=== PATIENT | female | born 1975 | race Caucasian/White ===

== ENCOUNTER 2018-11-26 21:05 | Inpatient (IN) | payer OTHER, SELFPAY ==
[~2018-11-26 21:05] MED LIST: ISOVUE-370 76%-LOCM 1 ML ONE
[2018-11-26] MEDS ORDERED: Ondansetron PF 4 MG/2 ML Vial ONE (22:28)
[2018-11-26] MEDS ORDERED: Famotidine/PF 20 mg/2ml Vial ONE (22:28)
[2018-11-26] MEDS ORDERED: Ketorolac Tromethamine 30 MG/ML VIAL ONE (22:28)
[2018-11-26] MEDS ORDERED: Glycopyrrolate 0.4 MG/ 2 ML VIAL SLOW IVP SCH (22:30)
[2018-11-26 22:33] LABS: Band 16 % (5-11); Eosinophils 1 % (0-10); Hemoglobin 19.5 g/dL (12.0-16.0); Lymphocytes 9 % (21-51); MDiff Complete? YES; Mean Corpuscular HGB CONC 33.2 g/dL (32.0-36.0); Mean Corpuscular Hemoglobin 32.1 pg (27.0-31.0); Mean Corpuscular Volume 96.6 fL (78.0-98.0); Monocytes 5 % (0-10); Neutrophil 69 % (42-75); Platelet Count 480 thou/uL (130-400); RBC Distribution Width 11.9 % (11.5-14.5); Red Blood Cell (RBC) Count 6.08 mill/uL (4.20-5.40); White Blood Cell (WBC) Count 33.9 thou/uL (4.8-10.8)
[2018-11-26 22:38] LABS: ALT (SGPT) 35 U/L (8-55); AST (SGOT) 36 U/L (5-34); Acetaminophen Less than 6.0 mcg/mL (10.0-30.0); Albumin 4.3 g/dL (3.5-5.0); Alcohol Less than 10 mg/dL (Less than 10); Alkaline Phosphatase 46 U/L (40-150); Anion Gap 18 mmol/L (10-20); BUN (Urea Nitrogen) 10 mg/dL (7.0-18.7); Bilirubin, Total 0.6 mg/dL (0.2-1.2); Calc. Creatinine Clearance 0 mL/min (70-130); Calcium 9.8 mg/dL (7.8-10.44); Carbon Dioxide 20 mmol/L (22-29); Chloride 101 mmol/L (98-107); Estimated GFR-MDRD 41; Globulin 3.4 g/dL (2.4-3.5); Glucose 136 mg/dL (70-105); Potassium 3.7 mmol/L (3.5-5.1); Protein, Total 7.7 g/dL (6.0-8.3); Salicylate Less than 8.0 mg/dL (15.0-30.0); Sodium 135 mmol/L (136-145)
[2018-11-26] MEDS ORDERED: Glycopyrrolate 0.2 MG/ML 5 ML SYRINGE SLOW IVP SCH (22:45)
--- NOTE | 2018-11-26 23:27 | CT ---
ABDOMEN CT WITH CONTRAST PELVIC CT WITH CONTRAST 11/26/18 HISTORY: Two weeks of abdominal pain. COMPARISON: None. FINDINGS: ABDOMEN CT: Lung bases are clear. Heart size is normal. No pericardial effusion. The descending thoracic aorta an d abdominal aorta have a normal caliber. No periaortic fat stranding. Portal vein is patent. Liver, spleen, pancreas and adrenal glands have appropriate enhancement. There is symmetric enhancement of the kidneys. Bilaterally, no obstructive uropathy. there is a nonsp ecific calcification involving the inferior left renal cortex. A component of scarring in the inferio r pole of the left kidney is suspected, likely due to remote insult. Bilaterally, no obstructive urop athy. Gallbladder is contacted. Multiple gallstones are noted. There is a small amount of fluid in the gall bladder fossa. There is also evidence of perihepatic and perisplenic fluid. Attenuation coefficient suggests slightly complex fluid. No gastrohepatic, retrocrural or periportal lymphadenopathy. No mesenteric mass, lymphadenopathy or f ree air. Perihepatic and perisplenic fluid are noted. Limited evaluation of the alimentary canal by lack of oral contrast. There are multiple fluid filled loops of small bowel with mild distention as well as mucosal prominence. The possibility of enteritis is raised. No evidence of bowel obstruction. Ileocecal junction is normal. There is fluid attenuatio n in the colon, without evidence of well formed fecal material. Colitis cannot be excluded. Normal ca liber appendix is identified. CT PELVIS: Uterus and adnexal structures are unremarkable. Urinary bladder is unremarkable. There is free fluid in the pelvis. No mass, lymphadenopathy or free air. No lytic or blastic lesions in the osseous structures. IMPRESSION: 1. Complex fluid in the abdomen and pelvis which is presumed to be reactive. There is evidence o f fluid attenuation in the colon along with small bowel mucosal prominence and small bowel distention . Correlate for enterocolitis. 2. Contracted gallbladder with gallstones. There is a small amount of fluid in the gallbladder f drake. The possibility of cholecystitis cannot be excluded. HIDA scan may be beneficial. 3. Presumed chronic change in the lower pole of the left kidney. POS: [facility]
[2018-11-26] MEDS ORDERED: Piperacillin/Tazobactam 4.5 GM VIAL ONE (23:56)
[2018-11-27] MEDS ORDERED: Ondansetron ODT 4 MG TAB PO PRN (00:35)
[2018-11-27] MEDS ORDERED: Ondansetron PF 4 MG/2 ML Vial IVP PRN (00:35)
[2018-11-27] MEDS ORDERED: Acetaminophen 325 MG TAB PO PRN (00:35)
[2018-11-27] MEDS ORDERED: Ondansetron PF 4 MG/2 ML Vial ONE (01:39)
[2018-11-27] MEDS ORDERED: Morphine 2 MG/ML SYRINGE ONE (01:39)
[2018-11-27] MEDS ORDERED: diphenhydrAMINE 50 MG/ML VIAL ONE (01:46)
[2018-11-27] MEDS: Morphine 2 MG/ML SYRINGE SLOW IVP PRN ×2 (01:51→15:55)
[2018-11-27 03:20] LABS: #Basophils 0.1 thou/uL (0.0-0.2); #Eosinphils 0.1 thou/uL (0.0-0.7); #Monocytes 0.6 thou/uL (0.11-0.59); #Neutrophils 14.3 thou/uL (1.40-6.50); %Basophils 0.4 % (0.0-1.0); %Eosinophils 0.4 % (0.0-10.0); %Lymphocytes 11.7 % (21.0-51.0); %Monocytes 3.6 % (0.0-10.0); %Neutrophils 83.9 % (42.0-75.0); Hemoglobin 14.1 g/dL (12.0-16.0); Mean Corpuscular HGB CONC 33.5 g/dL (32.0-36.0); Mean Corpuscular Hemoglobin 31.6 pg (27.0-31.0); Mean Corpuscular Volume 94.4 fL (78.0-98.0); Mean Platelet Volume 7.5 fL (7.4-10.4); Platelet Count 316 thou/uL (130-400); RBC Distribution Width 11.7 % (11.5-14.5); Red Blood Cell (RBC) Count 4.46 mill/uL (4.20-5.40)
[2018-11-27 03:23] LABS: Lactic Acid 1.5 mmol/L (0.5-2.2)
[2018-11-27 03:52] LABS: Anion Gap 12 mmol/L (10-20); BUN (Urea Nitrogen) 12 mg/dL (7.0-18.7); Calc. Creatinine Clearance 0 mL/min (70-130); Calcium 7.8 mg/dL (7.8-10.44); Carbon Dioxide 18 mmol/L (22-29); Chloride 110 mmol/L (98-107); Estimated GFR-MDRD 57; Glucose 125 mg/dL (70-105); Potassium 4.1 mmol/L (3.5-5.1); Sodium 136 mmol/L (136-145)
[2018-11-27 05:21] VITALS: BMI 29.8
[2018-11-27] MEDS: Sodium Chloride 0.9% 1,000 ML IV SCH ×3 (05:37→23:41)
[2018-11-27] MEDS: Fentanyl 100 MCG/2 ML VIAL SLOW IVP PRN ×2 (05:37→20:58)
--- NOTE | 2018-11-27 07:05 | HP ---
PRIMARY CARE DOCTOR: Joan Morgan MD CODE STATUS: Full code. TIME OF EVALUATION: 1 a.m. CHIEF COMPLAINT: Nausea and abdominal pain. HISTORY OF PRESENT ILLNESS: This is a 42-year-old female patient with past medical history of seizures, gallstone, and hypertension, came to the hospital after having severe episode of nausea, vomiting, and symptoms started yesterday associated with diarrhea. No clear triggers. No alleviating factors, associated with chills, symptoms were generalized, moderate. The patient's CAT scan showed possible acute cholecystitis and the patient has very high white count, is septic, and presented with hypotension, so we will place in IMCU, we will treat with broad-spectrum antibiotics. Surgery is being called. We will see the patient. We will follow recommendations. REVIEW OF SYSTEMS: CONSTITUTIONAL: The patient has no fever. She reported chills and generalized weakness. RESPIRATORY: No cough, sputum production, or shortness of breath. CARDIOVASCULAR: No chest pain or palpitation. GASTROINTESTINAL: The patient has nausea, vomiting, diarrhea, abdominal pain. TWISTER DOFFER: No dizziness, headache, or feeling lightheaded. GENITOURINARY: No burning on urination. EXTREMITIES: No leg swelling. All other systems were reviewed and negative except for the findings mentioned above. PAST MEDICAL HISTORY: Positive and as mentioned in the HPI. PAST SURGICAL HISTORY: No history. PSYCH HISTORY: No psych history. FAMILY HISTORY: Reviewed and non contributory to current presentation. SOCIAL HISTORY: Previous smoker. No drugs. No alcohol. KNOWN ALLERGIES: No known drug allergies. REPORTED MEDICATIONS: 1. Lisinopril. 2. Dicyclomine. PHYSICAL EXAMINATION: VITAL SIGNS: On presentation, blood pressure was 95/50 with heart rate 81, respiratory rate 15, temperature 97.4, pain was 3/10, oxygen saturation was 96% on room air, blood pressure dropped to the 70s and has responded to fluid resuscitation. GENERAL APPEARANCE: The patient is alert, oriented, mild distress due to symptoms. HEENT: Eyes, normal conjunctivae. Dry oral mucosa. Anicteric. No JVD. RESPIRATORY: Bilateral air entry. No rales. No wheezes. Symmetric expansion. CARDIOVASCULAR: Normal rate, regular rhythm. No murmurs. No gallop. No edema. ABDOMEN: Soft and tender with increased bowel sounds. MUSCULOSKELETAL: Baseline range of motion. No sternal tenderness. SKIN: Warm and intact. No pallor. No rash. No redness. Peripheral pulses are present. Capillary refill seems to be intact. NEUROLOGIC: No evidence of any new focal weakness. Baseline speech. Cranial nerves seems to be intact. PSYCH: The patient is in good mood. No anxiety. Optimal judgment. LABORATORY DATA: EKG was reviewed, the patient has normal sinus rhythm with possible left atrial enlargement, ventricular rate 74, UT 138, QRS 76, QTc corrected 415. Abdomen and pelvis CT was reviewed: 1. The patient has complex fluid in the abdomen and pelvis, which is presumed to be reactive. There is evidence of further attenuation in the colon along with the small bowel mucosa, probably some small bowel distention, correlates enterocolitis. 2. Contracted gallbladder with gallstones. There is a small amount of fluid in the gallbladder fossa. The possibility of cholecystitis cannot be excluded. HIDA scan may be beneficial, presumed chronic changes in the lower pole of the left kidney. LABORATORY DATA: Labs were reviewed. The patient has a white count of 33.9, the second one was 17, hemoglobin 19.5, hematocrit 58.8, MCV 96.6, platelet count 280; all these values have corrected likely due to dehydration, except for the white count which is still 17, which seems to be real, bands were 16. Sodium 135, potassium 3.7, chloride 101, carbon dioxide was 20, anion gap 18, BUN 10, creatinine 1.42, GFR was 41, glucose 136, lactic acid 3.4, calcium 9.8, AST 36, ALT 35, alkaline phosphatase was 46. ASSESSMENT AND PLAN: The patient will be placed in the hospital with the following medical problems: 1. Sepsis. The patient has leukocytosis, acute kidney injury, hypotension that responded to fluids, what makes this qualify for severe sepsis. The patient will be started on broad-spectrum antibiotics. seems to be acute cholecystitis sludge, possible colitis, we will follow cultures, we will adjust treatment as needed. 2. Dehydration. The patient currently with hemoconcentration and acute kidney injury could be secondary to nausea, vomiting, and diarrhea plus the infection, these values have improved after resuscitation. We will treat underlying condition. 3. Hyponatremia, sodium 135, this is mild and is corrected on the second lab draw. 4. Non-anion gap metabolic acidosis, likely secondary to bicarb loss from diarrhea, we will treat underlying condition. 5. Acute kidney injury on presentation with creatinine 1.42 and the repeat one is 1.0. This is likely secondary to infection and underlying sepsis, we will monitor kidney function. 6. Hyperglycemia with glucose 136, this is likely secondary to acute physical distress or sepsis. No history of diabetes. We will monitor, no need for any acute intervention at this point. 7. Lactic acidosis on presentation. Lactic acid 3.4, repeat one 1.5. We will treat underlying condition. This is secondary to sepsis. 8. Uncontrolled hypertension. The patient presented with hypotension due to sepsis. We will reconcile home medications. We will not treat aggressively her blood pressure due to severe sepsis. Medications need to be reconciled later on during admission once the patient is stable. 9. History of seizures, reconcile home medications. 10. Acute cholecystitis, seen on the CAT scan. Surgery has been called, they will see the patient for recommendations. Continue IV antibiotics, follow cultures, adjust treatment as necessary. 11. Deep venous thrombosis prophylaxis. Job ID: [id number] [facility]
--- NOTE | 2018-11-27 08:58 | CON ---
DATE OF CONSULTATION: 11/27/2018 HISTORY OF PRESENT ILLNESS: This is a 42-year-old female with a history of intermittent diffuse abdominal bloating and diffuse pain over the last several months. These episodes are becoming more frequent. The pain is described as 9/10 sharp, diffuse, and gets better overtime. She also has a history of intermittent right upper quadrant pain, hence been told she had gallstones in the past. Her diffuse bloating started this Sunday, got better, yesterday she actually went to work. After lunch yesterday afternoon; however, she developed severe nausea, vomiting, and dehydration, presented to the emergency room last night, fairly dehydrated and hypotensive, but normal pulse. Creatinine was elevated and hemoglobin was elevated. She got fluids that made her feel a little bit better, although she has persistent pain this morning. This morning, she has persistent pain and bloating. She has no pain at rest. No nausea. Her diarrhea has stopped. She denies history of inflammatory bowel disease or Crohn's. Dr. Joan Morgan put her on dicyclomine for this cramping in her abdomen. Mostly this cramping is into the low to mid abdomen, not necessarily right upper quadrant. PAST MEDICAL HISTORY: She had a seizure at 1 point, but she does not take any antiseizure medications and has not had a seizure for a while. ALLERGIES: NO KNOWN DRUG ALLERGIES. SOCIAL HISTORY: No smoking. No alcohol. No drugs. REVIEW OF SYSTEMS: A 10-system review of systems is otherwise negative, unless described above. PHYSICAL EXAMINATION: VITAL SIGNS: Her blood pressure is 90/40. Her pulse is 83. Her temperature is 99.2. She has respirations of 12. HEENT: Sclerae anicteric. Oropharynx clear. NECK: No lymphadenopathy. CHEST: Clear. HEART: Regular rate and rhythm. ABDOMEN: Her abdomen is diffusely distended and her abdomen is diffusely tender more in the mid abdomen without peritoneal signs. No obvious abdominal hernias. No fluid wave. No ischemia or edema to extremities. LABORATORY DATA: White blood cell count is 17, hemoglobin 14, and platelet count is 316. Sodium 136, potassium 4.1, and creatinine is 1.07. Review of the CT scan with radiologist reveals fairly significant wall thickening of the distal small intestine, free fluid in the pelvis, and free fluid around the liver. There is no evidence of cholecystitis, although she has a contracted gallbladder and stones. ASSESSMENT: 1. Nausea, vomiting, and diffuse abdominal pain, intermittent. 2. History of symptomatic gallstones. PLAN: I do not think her symptoms are necessarily related to her gallbladder at this point. I agree with continued supportive care. I have discussed with Dr. Shawn Conte and he will see her to evaluate for enteritis. We will follow with you. Job ID: [id number]
[2018-11-27] MEDS: Piperacillin/Tazobactam 4.5 GM in Sodium Chloride 0.9% 100 ML IVPB SCH ×3 (09:07→23:41)
[2018-11-27] MEDS: Enoxaparin Sodium 40 MG/0.4 ML SYRINGE SC SCH (09:08)
--- NOTE | 2018-11-27 09:27 | CON ---
DATE OF CONSULTATION: 11/27/2018 CONSULTING PHYSICIAN: Richa Bravo. REASON FOR CONSULTATION: IMC placement. HISTORY OF PRESENT ILLNESS: This is a 42-year-old female, who presented with a questionable seizure episode, nausea, vomiting, and diarrhea. The nausea, vomiting, and diarrhea had been present for several days. She has not had any bloody diarrhea to speak off. PAST MEDICAL HISTORY: Cholelithiasis. PAST SURGICAL HISTORY: None. SOCIAL HISTORY: Smokes 3/4 pack per day. Does not use illicit drugs. Occasionally drinks alcohol. PSYCHIATRIC HISTORY: Unremarkable. ALLERGIES: NONE. MEDICATIONS: Prior to admission, she takes lisinopril for hypertension. REVIEW OF SYSTEMS: Twelve-point review of systems is otherwise negative. PHYSICAL EXAMINATION: VITAL SIGNS: Temperature 99.2, pulse 69, blood pressure 105/48, and O2 sat 94%. GENERAL: She is awake, alert, in no distress. HEENT: Unremarkable. NECK: No JVD. LUNGS: Clear. CARDIAC: S1 and S2, regular without no murmur. ABDOMEN: Diffusely tender to superficial palpation. Bowel sounds hypoactive. EXTREMITIES: No clubbing, cyanosis, or edema. LABORATORY DATA: Sodium 136, potassium 4.1, chloride 110, CO2 of 18, BUN 12, creatinine 1.0, and glucose 125. White blood cell count 17, but it was as high as 34, hematocrit 42, and platelet count 316. Her CT of the abdomen showed fluid collection in the pelvis along with diffuse colitis and small bowel edema. ASSESSMENT: 1. Enterocolitis - infectious versus inflammatory from other entities. 2. Cholelithiasis. PLAN: Hydration, antibiotics. GI has been consulted for further disposition. The patient may need a colonoscopy. From my standpoint, she can be transferred out to either the Medical or Surgical floors. Job ID: [id number]
--- NOTE | 2018-11-27 14:48 | CON ---
DATE OF CONSULTATION: 11/27/2018 REASON FOR CONSULTATION: Abdominal pain. HISTORY OF PRESENT ILLNESS: Ms. Miramontes is a 42-year-old female, who presented to the ER after having progressive abdominal pain with associated distention, bloating, nausea, vomiting, and diarrhea yesterday afternoon. She has known gallstones since 2017 and reports having had 4 distinct attacks of upper abdominal pain favoring the right side. However, her admitting symptoms is somewhat different from her previous gallbladder attacks. She described having diffuse abdominal pain, but more so in the bandlike distribution in the upper abdomen. She had severe nausea, vomiting, and diarrhea that lasted for approximately 2 hours. She did not have any chills. She did report having mild diaphoresis and a near syncopal episode. There is no evidence of melena, hematochezia, or rectal bleeding. Leading up to the event yesterday, she has had intermittent bloating and cramping of the abdomen for the last several months. She has had some weight gain. She denies any exposure history. There are no recent travels. Her only other household member is her son who is healthy. PAST MEDICAL HISTORY: 1. Remote history of seizure, no activity for the last 10 years. 2. Hypertension. MEDICATION AT HOME: Lisinopril. ALLERGIES: NONE. SOCIAL HISTORY: The patient is a single mom. She works in accounts receivable. Denies any tobacco or illicit drug use. She consume on the average of 2 alcoholic beverages per month. FAMILY HISTORY: Father with diverticulosis and diverticulitis. No other GI problem, liver disease, or GI malignancy. REVIEW OF SYSTEMS: A 10-point review of systems otherwise completely normal. PHYSICAL EXAMINATION: VITAL SIGNS: Temperature is 99.6, blood pressure 103/66, and pulse of 78. GENERAL: She is alert, conversant, in no distress. HEENT: Shows anicteric sclerae. Oropharynx clear. NECK: Supple. CV: Shows normal S1 and S2. Regular rate and rhythm. CHEST: Shows a breath sounds. ABDOMEN: Mildly tympanitic. No significant distention. She has diffuse tenderness. She does not have guarding, but mild rebound. There is severe localized tenderness to the upper abdomen, both left upper quadrant, epigastrium , and right upper quadrant. EXTREMITIES: Shows no edema. LABORATORY DATA: Electrolytes are fairly within normal range. Creatinine 1.07 , BUN of 12, bilirubin 0.6, AST 36, ALT 35, alkaline phosphatase 46, and lipase of 15. Lactic acid on admission was 3.[address] of abdomen and pelvis with IV contrast showed normal pancreas, liver, spleen , and kidneys. There is small amount of fluid in the upper abdomen. The gallbladder is contracted with gallstone. There is fluid-filled small bowel and colon with mild mucosal thickening. ASSESSMENT: Complex picture of sudden onset of severe abdominal pain, associated nausea, vomiting, and diarrhea, preceded by a several months of intermittent bloating and cramps in the background of cholelithiasis. Physical exam is significant for tenderness with mild rebound more so in the upper abdomen. Clinical picture could suggest nonspecific infectious enteritis, either bacterial or viral, but I am wondering whether this could be an atypical presentation of acute cholecystitis with reactive mesenteric and peritoneal changes given her abdominal exam showing significant tenderness more so in the upper abdomen. Perhaps she could have reactive fluid and ileus as a result of cholecystitis. Clinical symptoms are not typical for inflammatory bowel disease such as Crohn' s or ulcerative colitis at the present time. Ischemic bowel and TB infection are much less likely. RECOMMENDATION: 1. Continue with piperacillin and tazobactam. 2. Would obtain HIDA scan for now. 3. Pending results, the patient may need upper and lower endoscopy. 4. We will follow, further recommendation pending above results. Job ID: [id number] [facility]
[2018-11-27] MEDS ORDERED: Morphine 2 MG/ML SYRINGE SLOW IVP SCH (15:45)
--- NOTE | 2018-11-27 17:36 | NM ---
NUCLEAR MEDICINE HIDA SCAN WITHOUT EJECTION FRACTION: 11/27/18 HISTORY: Cholelithiasis. COMPARISON: CT abdomen and pelvis prior day. FINDINGS: The patient was pretreated with 1.4 micrograms of cholecystokinin IV 30 minutes prior to imaging. The re is adequate hepatic uptake or radiotracer. The common bile duct and proximal small bowel is seen q uickly. Morphine was subsequently given one hour after imaging. Initial 30 minutes of imaging did not demonstrate the gallbladder. IMPRESSION: Nonvisualization of the gallbladder suggesting cystic duct obstruction. POS: [facility]
--- NOTE | 2018-11-27 20:35 | PDOC.PN ---
- Subjective Encounter Start Date: 11/27/18 Encounter Start Time: 20:20 Subjective: f/u for abd pain, acute cholecystitis and sepsis on current Zosyn. -: Feels better overall and less abd pain. NPO x ice chips but no N/V -: Plan for likely lap naa in am. - Objective Resuscitation Status - Order Detail: 11/27/18 00:35 Resuscitation Status Routine Resuscitation Status: FULL: Full Resuscitation MAR Reviewed: Yes Vital Signs & Weight: Vital Signs (12 hours) Temp 11/27/18 19:45 99.3 F 11/27/18 10:54 99.6 F Weight Weight 184 lb 11.2 oz Most Recent Monitor Data Heart Rate from ECG 62 NIBP 118/80 NIBP BP-Mean 92 Respiration from ECG 20 SpO2 97 I&O: 11/26/18 11/27/18 11/28/18 06:59 06:59 06:59 Intake Total 1700 Output Total 400 Balance 1300 Result Diagrams: 11/27/18 03:00 11/27/18 03:00 Additional Labs: Accuchecks 11/26/18 21:59 POC Glucose 136 H Microbiology 11/26/18 21:36 Stool - Pending Campylobacter Antigen Assay - Final 11/26/18 21:36 Stool - Pending Shiga Toxin Test - Final 11/26/18 21:36 Stool - Pending C. difficile GDH Antigen & Toxins - Final 11/26/18 21:36 Stool - Pending Stool Culture - Preliminary Laboratory Tests 11/26/18 11/26/18 11/26/18 22:01 22:01 22:01 WBC 33.9 H Hgb 19.5 H Neutrophils % Neutrophils % (Manual) 69 Band Neuts % (Manual) 16 H Creatinine 1.42 H Lactic Acid 3.4 H 11/27/18 11/27/18 03:00 03:00 WBC Hgb Neutrophils % 83.9 H Neutrophils % (Manual) Band Neuts % (Manual) Creatinine Lactic Acid 1.5 Radiology Reviewed by me: Yes (HIDA scan - non-visualized GB) EKG Reviewed by me: Yes (Tele - SR) Phys Exam - Physical Examination Constitutional: NAD smiling, alert HEENT: PERRLA, sclera anicteric, oral pharynx no lesions Neck: no nodes, no JVD, supple, full ROM Respiratory: no wheezing, no rales, no rhonchi, clear to auscultation bilateral S1, S2 Cardiovascular: RRR, no significant murmur, no rub, gallop mild TTP in RUQ/epigastric region Gastrointestinal: soft, no distention, positive bowel sounds Musculoskeletal: no edema, pulses present Neurological: normal sensation, moves all 4 limbs Psychiatric: A&O x 3 Skin: normal turgor, cap refill <2 seconds Dx/Plan (1) Sepsis Code(s): A41.9 - SEPSIS, UNSPECIFIED ORGANISM Status: Acute Comment: Secondary to #2, continue IVF's, Zosyn, see below for mgmt (2) Acute cholecystitis Code(s): K81.0 - ACUTE CHOLECYSTITIS Status: Acute Comment: HIDA scan abnormal, plan for lap cholecystectomy in am 11/28/18, pain control (3) Abdominal pain Code(s): R10.9 - UNSPECIFIED ABDOMINAL PAIN Status: Acute Qualifiers: Abdominal location: epigastric Qualified Code(s): R10.13 - Epigastric pain Comment: Secondary to #2, pain control, NPO x ice chips (4) Lactic acidosis Code(s): E87.2 - ACIDOSIS Status: Acute Comment: Secondary to sepsis, resolving (5) PRIETO (acute kidney injury) Code(s): N17.9 - ACUTE KIDNEY FAILURE, UNSPECIFIED Status: Acute Comment: Improved with IVF's, avoid nephrotoxic meds and limit contrast exposure (6) Dehydration Code(s): E86.0 - DEHYDRATION Status: Acute Comment: Improving with IVF's, continue IVF's until tolerating po intake - Plan plan discussed w/ family, continue antibiotics, social science professor, out of bed/ ambulate, DVT proph w/SCDs Stable currently -: Continue IVF's -: Continue Zosyn -: Plan for lap naa on 11/28/18 -: Pain control with Fentanyl IV * AM lab: CMP, CBC
[2018-11-28] MEDS: Sodium Chloride 0.9% 1,000 ML IV SCH ×3 (05:56→20:40)
[2018-11-28 06:35] LABS: Eosinophils 4 % (0-10); Lymphocytes 36 % (21-51); MDiff Complete? YES; Mean Corpuscular HGB CONC 32.7 g/dL (32.0-36.0); Mean Corpuscular Hemoglobin 31.8 pg (27.0-31.0); Mean Corpuscular Volume 97.1 fL (78.0-98.0); Mean Platelet Volume 7.7 fL (7.4-10.4); Monocytes 7 % (0-10); Neutrophil 50 % (42-75); Platelet Count 225 thou/uL (130-400); RBC Distribution Width 11.5 % (11.5-14.5); Reactive Lymphocytes 3 % (0-10); Red Blood Cell (RBC) Count 3.77 mill/uL (4.20-5.40); White Blood Cell (WBC) Count 9.3 thou/uL (4.8-10.8)
[2018-11-28 06:38] LABS: ALT (SGPT) 22 U/L (8-55); AST (SGOT) 23 U/L (5-34); Albumin 3.1 g/dL (3.5-5.0); Alkaline Phosphatase 28 U/L (40-150); Anion Gap 12 mmol/L (10-20); BUN (Urea Nitrogen) 7 mg/dL (7.0-18.7); Bilirubin, Total 0.6 mg/dL (0.2-1.2); Calc. Creatinine Clearance 136 mL/min (70-130); Calcium 7.8 mg/dL (7.8-10.44); Carbon Dioxide 20 mmol/L (22-29); Chloride 110 mmol/L (98-107); Estimated GFR-MDRD 89; Globulin 1.9 g/dL (2.4-3.5); Glucose 72 mg/dL (70-105); Potassium 3.3 mmol/L (3.5-5.1); Sodium 139 mmol/L (136-145)
[2018-11-28] MEDS: Piperacillin/Tazobactam 4.5 GM in Sodium Chloride 0.9% 100 ML IVPB SCH ×3 (08:01→23:28)
[2018-11-28] MEDS: Enoxaparin Sodium 40 MG/0.4 ML SYRINGE SC SCH (08:01)
[2018-11-28] MEDS ORDERED: Fentanyl 250 MCG/5 ML VIAL ONE (08:30)
[2018-11-28] MEDS ORDERED: Iothalamate Meglumine 60% 50 ML VIAL FS ONE (08:33)
[2018-11-28] MEDS ORDERED: Bupivacaine/Epinephrine 0.25% 30 ML VIAL ONE (08:33)
[2018-11-28] MEDS ORDERED: Midazolam HCl 2 mg/2 ml Vial ONE (08:55)
--- NOTE | 2018-11-28 10:25 | OP ---
DATE OF PROCEDURE: 11/28/2018 PREOPERATIVE DIAGNOSIS: Acute cholecystitis. POSTOPERATIVE DIAGNOSIS: Acute cholecystitis. PROCEDURE PERFORMED: Laparoscopic cholecystectomy. ANESTHESIA: General. ESTIMATED BLOOD LOSS: Minimal. COMPLICATION: None. SPECIMEN: Gallbladder. FINDINGS: There was some free fluid in the perihepatic space as well as the pelvis. This was sent as culture, although it does not look cloudy or turbid. There was no significant inflammation of the intestine or colon. There was no evidence of inflammation or perforation of the duodenum. There was a large stone in the fundus of the gallbladder, but no significant cholecystitis type findings. DESCRIPTION OF PROCEDURE: The patient was taken to the operating room and laid supine on the operating room table. After general anesthetic was obtained, the abdomen was shaved, prepped, and draped in a sterile fashion. A curved incision was made below the umbilicus. Cautery was used to dissect down to and score the fascia. Abdominal cavity was entered bluntly using a Ananya clamp. Holding stitch of PDS placed on each side of the fascia. Carmen trocar was placed. High-flow pneumoperitoneum was obtained. Upper midline 5 mm port and 2 right upper quadrant 5 mm ports were placed in direct visualization. Looking down in the pelvis, there was some clear fluid. A specimen of which was taken and sent to Path for culture. There was no significant inflammatory change to the intestine or colon. There was no evidence of inflammatory change or perforation of the duodenum. There was a mild inflammation of the gallbladder. The peritoneum of the gallbladder was opened anteriorly and posteriorly. The critical view triangle was seen, showing only the cystic duct and cystic artery branching medial to lateral. There were no other branching structures. Two clips were placed proximally and one distally, and laparoscopic scissors were used to cut the cystic duct. Cystic artery was taken in the same way. Cautery used to dissect the gallbladder out of the gallbladder fossa. Gallbladder was placed in EndoCatch bag and brought out through the Carmen. There was no bleeding in the liver bed. The right upper quadrant was irrigated. All ports were removed under camera visualization. Pneumoperitoneum was let down. PDS was used to close the fascial defect below the umbilicus. All incisions were irrigated and closed using 4-0 Monocryl and Dermabond. The patient was en route to Recovery in stable condition. All sponge counts, needle counts, and lap counts were correct. Job ID: [id number]
[2018-11-28] MEDS ORDERED: Fentanyl 100 MCG/2 ML VIAL ONE (10:30)
--- NOTE | 2018-11-28 10:41 | PRG ---
DATE OF SERVICE: 11/28/2018 SUBJECTIVE: The patient feels better this morning with less abdominal pain. No nausea, vomiting, diarrhea. OBJECTIVE: VITAL SIGNS: Temperature is 99.1, blood pressure 120/65, pulse of 75. GENERAL: She is alert, no distress. CV: Exam shows normal S1, S2. Regular rate and rhythm. CHEST: Shows breath sound. ABDOMEN: Has yimg-ax-mgzjdawn tenderness. No guarding or rebound. She has bowel sounds. No distention or tympany. EXTREMITIES: Shows no edema. LABORATORY DATA: WBC is 9.3, hemoglobin 12.0, and platelet count of 225. Electrolytes within normal range. Creatinine 0.72. LFTs are normal. HIDA scan yesterday did not show gallbladder activity. ASSESSMENT: 1. Abdominal pain, unknown etiology with CT demonstrating complex fluid and some mural thickening involving small bowel. 2. Presenting symptoms of nausea, vomiting, diarrhea have subsided. 3. HIDA scan suggests possibility of cholecystitis. RECOMMENDATION: For diagnostic laparoscopy and cholecystectomy this morning. Job ID: [id number]
[2018-11-28] MEDS ORDERED: Ondansetron PF 4 MG/2 ML Vial ONE (10:52)
[2018-11-28] MEDS ORDERED: Dexamethasone 20 MG/5 ML VIAL ONE (10:52)
[2018-11-28] MEDS ORDERED: Rocuronium Bromide 10 MG/ML (10ML VIAL) ONE (10:52)
[2018-11-28] MEDS ORDERED: PROPOFOL 200 MG/20 ML VIAL ONE (10:52)
[2018-11-28] MEDS ORDERED: Glycopyrrolate 0.2 MG/ML 5 ML SYRINGE ONE (10:52)
--- NOTE | 2018-11-28 12:25 | PDOC.PN ---
- Subjective Encounter Start Date: 11/28/18 Encounter Start Time: 12:24 Patient seen and examined, no new issues or complaints. - Objective Resuscitation Status - Order Detail: 11/27/18 00:35 Resuscitation Status Routine Resuscitation Status: FULL: Full Resuscitation Vital Signs & Weight: Vital Signs (12 hours) Temp Pulse Ox 11/28/18 08:00 100 11/28/18 07:24 99.1 F 11/28/18 03:50 99.2 F Weight Weight 185 lb 3.2 oz Most Recent Monitor Data Heart Rate from ECG 75 NIBP 113/73 NIBP BP-Mean 86 Respiration from ECG 20 SpO2 93 I&O: 11/27/18 11/28/18 11/29/18 06:59 06:59 06:59 Intake Total 3315 Output Total 1100 Balance 2215 Result Diagrams: 11/28/18 05:12 11/28/18 05:12 Phys Exam - Physical Examination Constitutional: NAD HEENT: PERRLA, moist MMs, sclera anicteric Neck: no nodes, no JVD, supple Respiratory: no wheezing, no rales, no rhonchi Cardiovascular: RRR, no significant murmur, no rub Gastrointestinal: soft, no distention, positive bowel sounds +gaitan's Musculoskeletal: no edema, pulses present Dx/Plan (1) Abdominal pain Code(s): R10.9 - UNSPECIFIED ABDOMINAL PAIN Status: Acute Qualifiers: Abdominal location: epigastric Qualified Code(s): R10.13 - Epigastric pain Comment: Secondary to #2, pain control, NPO x ice chips (2) Acute cholecystitis Code(s): K81.0 - ACUTE CHOLECYSTITIS Status: Acute Comment: HIDA scan abnormal, plan for lap cholecystectomy in am 11/28/18, pain control (3) PRIETO (acute kidney injury) Code(s): N17.9 - ACUTE KIDNEY FAILURE, UNSPECIFIED Status: Acute Comment: Improved with IVF's, avoid nephrotoxic meds and limit contrast exposure (4) Dehydration Code(s): E86.0 - DEHYDRATION Status: Acute Comment: Improving with IVF's, continue IVF's until tolerating po intake (5) Lactic acidosis Code(s): E87.2 - ACIDOSIS Status: Acute Comment: Secondary to sepsis, resolving (6) Sepsis Code(s): A41.9 - SEPSIS, UNSPECIFIED ORGANISM Status: Acute Comment: Secondary to #2, continue IVF's, Zosyn, see below for mgmt - Plan * GB removal for today * no changes in plan of care for now * continue current medical management will adjust as patients condition merits
[2018-11-28] MEDS ORDERED: HYDROcodone/Acetaminophen 7.5/325 mg Tablet PO PRN (19:39)
[2018-11-28] MEDS: Fentanyl 100 MCG/2 ML VIAL SLOW IVP PRN (20:38)
[2018-11-28] MEDS: HYDROcodone/Acetaminophen 7.5/325 mg Tablet PO PRN (21:27)
[2018-11-29] MEDS: Sodium Chloride 0.9% 1,000 ML IV SCH ×3 (05:36→16:58)
[2018-11-29] MEDS: HYDROcodone/Acetaminophen 7.5/325 mg Tablet PO PRN ×3 (06:24→22:25)
[2018-11-29] MEDS: Enoxaparin Sodium 40 MG/0.4 ML SYRINGE SC SCH (09:12)
[2018-11-29] MEDS: Piperacillin/Tazobactam 4.5 GM in Sodium Chloride 0.9% 100 ML IVPB SCH ×3 (09:13→23:22)
--- NOTE | 2018-11-29 12:35 | PDOC.EVN ---
Event Note - Event Note Event Note: DC SUMMARY #[id number]
--- NOTE | 2018-11-29 15:44 | PRG ---
DATE OF SERVICE: 11/29/2018 SUBJECTIVE: Ms. Miramontes complains of abdominal distention and bloating today. She has had increase in her abdominal pain or at least no improvement in her abdominal pain. She has been tender. She has tolerated clear liquids so far today. She has had no bowel movement since Sunday, but she was admitted with watery diarrhea at that time. OBJECTIVE: VITAL SIGNS: Temperature 97.7, pulse 69, and blood pressure 115/80. GENERAL: She is in no acute distress. Alert and oriented x3. LUNGS: Clear to auscultation bilaterally. HEART: Regular rate and rhythm without murmur. ABDOMEN: Tender to palpation without guarding. Her bowel sounds are present. EXTREMITIES: No lower extremity edema. LABORATORY DATA: White blood cell count 9.3, hemoglobin 12.0, and platelets 225. Creatinine 0.72, bilirubin 0.6, AST 23, ALT 22, and alkaline phosphatase 28. IMPRESSION: 1. Enterocolitis with mucosal thickening and free fluid in the abdomen and some small bowel distention. This likely was an infectious gastroenteritis and now she still has some abdominal bloating and distention, but her diarrhea is improved. She does have significant abdominal pain today, but no guarding. She has tolerated some clear liquids today. I do not think she is quite ready for discharge and we should watch her overnight and continue fluids for now. 2. Cholecystitis, status post cholecystectomy yesterday. RECOMMENDATIONS: She remains on antibiotics and IV fluids. If her pain is improving tomorrow, then hopefully we should be able to advance her diet. She is still requiring opioid pain medicines for pain control this afternoon. Job ID: [id number]
--- NOTE | 2018-11-29 17:05 | PRG ---
DATE OF SERVICE: 11/29/2018 SUBJECTIVE: The patient reports that the original right upper quadrant pain is gone, but she actually had had two pains, and the central and lower abdominal pain persists. She said that she is feeling a lot of bloating. She has not passed any gas. She is tolerating clear liquids without nausea or vomiting, but her pain requires narcotics. OBJECTIVE: VITAL SIGNS: Her temperature is 97.7, pulse 69, and blood pressure 115/80. GENERAL: She looks good, but she just has been medicated. HEENT: No jaundice. LUNGS: Clear. HEART: Regular rate and rhythm. ABDOMEN: Distended. The incisions are healing well. There is no evidence of infection. ASSESSMENT: I talked to Dr. Joiner in Gastroenterology, who feels that she may have some type of enteritis. PLAN: Plan is not to advance her diet, yet to keep her on her liquid diet, keep her walking and further management per GI. Job ID: [id number]
[2018-11-30] MEDS: Sodium Chloride 0.9% 1,000 ML IV SCH ×3 (05:14→22:45)
[2018-11-30] MEDS: HYDROcodone/Acetaminophen 7.5/325 mg Tablet PO PRN ×3 (05:47→23:58)
[2018-11-30 07:24] LABS: Hemoglobin 12.8 g/dL (12.0-16.0); Mean Corpuscular HGB CONC 32.6 g/dL (32.0-36.0); Mean Corpuscular Hemoglobin 31.3 pg (27.0-31.0); Mean Corpuscular Volume 96.2 fL (78.0-98.0); Mean Platelet Volume 7.4 fL (7.4-10.4); Platelet Count 240 thou/uL (130-400); RBC Distribution Width 11.5 % (11.5-14.5); White Blood Cell (WBC) Count 6.9 thou/uL (4.8-10.8)
[2018-11-30 07:47] LABS: MDiff Complete? YES
[2018-11-30 07:48] LABS: Band 2 % (5-11); Eosinophils 1 % (0-10); Lymphocytes 22 % (21-51); Monocytes 2 % (0-10); Neutrophil 61 % (42-75); Platelet Morphology Comment Appears Adequate; Reactive Lymphocytes 12 % (0-10)
[2018-11-30] MEDS: Piperacillin/Tazobactam 4.5 GM in Sodium Chloride 0.9% 100 ML IVPB SCH ×3 (08:00→23:58)
--- NOTE | 2018-11-30 08:06 | RAD ---
RADIOGRAPH CHEST 1 VIEW RADIOGRAPH ABDOMEN 2 VIEWS: Date: 11/30/2018. Time: 7:09 a.m. HISTORY: A 42-year-old female with abdominal distention and abdominal pain. FINDINGS: No consolidation or pulmonary edema. No pneumothorax or pneumoperitoneum. Air fluid levels in gas-f illed, mildly distended transverse colon. Some air in nondistended sigmoid colon. Lack of small bow el gas makes it difficult to evaluate the small intestine, but there is probably no small bowel obstr uction. Cholecystectomy clips in the gallbladder fossa. IMPRESSION: Mild colonic distention with gas and air. AMANDA [] POS: ABRAN
[2018-11-30] MEDS: Enoxaparin Sodium 40 MG/0.4 ML SYRINGE SC SCH (10:32)
[2018-11-30] MEDS: Neostigmine 0.5 MG in Syringe 0 ML SC SCH ×3 (10:33→22:46)
--- NOTE | 2018-11-30 12:06 | PRG ---
DATE OF SERVICE: 11/30/2018 This is a cross coverage for Dr. Chavez Joiner. SUBJECTIVE: This is a 42-year-old female with status post laparoscopic cholecystectomy two days ago. She had developed postop ileus. She does have abdominal pain, nausea, not able to pass gas yesterday. The patient is on a clear liquid diet. She had a small liquid stool today and she has no more nausea. She still had some pain, most likely from the operative site area. There is no nausea or vomiting. She had an abdominal CT scan done which revealed basically ileus. PHYSICAL EXAMINATION: GENERAL: Appears comfortable, in no acute distress. VITAL SIGNS: Afebrile, pulse is 71, blood pressure 139/91. CARDIOVASCULAR SYSTEM/LUNGS: Within normal limits. ABDOMEN: Soft and nondistended. She is minimally tender . Bowel sounds are active. RECOMMENDATION: 1. Advance diet to full liquid diet and she tolerates advanced to regular diet later on. 2. If nausea returns, may try some Reglan. Job ID: [id number]
[2018-11-30] MEDS ORDERED: Potassium Chloride 40 MEQ, Magnesium Sulfate 2 GM in Sodium Chloride 0.9% 250 ML 250 ML IVPB SCH (18:15)
[2018-11-30] MEDS ORDERED: Magnesium Sulfate 2 GM in Sodium Chloride 0.9% 100 ML IVPB SCH (18:15)
--- NOTE | 2018-11-30 18:33 | PRG ---
DATE OF SERVICE: 11/30/2018 SUBJECTIVE: Ms. Miramontes is a 42-year-old woman. She is postoperative day #2, status post laparoscopic cholecystectomy. The patient was also found with incidental enteritis. This morning, she reported profound abdominal bloating associated with worsening abdominal pain, which she rated at 10/10, not relieved with analgesics. She was not passing any flatus or having bowel movement since surgery. I obtained abdominal x-ray, which revealed multiple distended loops of small and large bowel. There was, however, positive gas in the rectum. There appears to be no obstructive pattern. OBJECTIVE: VITAL SIGNS: Today include blood pressure 139/91, pulse 71, respiratory rate is 18, temperature 98.6 degrees Fahrenheit, and oxygen saturation 94% on room air. HEART: Reveals regular rate and rhythm. LUNGS: Clear to auscultation bilaterally. Breathing, regular and nonlabored. ABDOMEN: Soft and distended with high-pitched bowel sounds present. The patient does, however, have abdominal tenderness to palpation with no gross rebound tenderness present. All incisions are intact, clean, and dry. LABORATORY FINDINGS: Today includes CBC with 6900 white blood cells, hemoglobin and hematocrit of 12.8 and 39.4 respectively. Platelet count is 240,000. Metabolic profile; sodium 139, potassium 3.3, chloride is 110, bicarb is 20, BUN 7, creatinine 0.72, glucose is 72, and total bilirubin is 0.6. Lipase is normal at 5. IMPRESSION: 1. Postop day #2, status post laparoscopic cholecystectomy. 2. Acute hypokalemia. 3. Acute postoperative adynamic ileus. PLAN: 1. Correct abnormal electrolytes. 2. We will start neostigmine subcutaneously and monitor the patient for resolution of the ileus. 3. Encourage the patient to increase activity, ambulating ad nieves. Above findings and plan discussed with the patient, who indicates understanding of information given. Note also that 4 hours after the first dose of neostigmine, I re-evaluated the patient at which time abdominal distention had markedly improved and she was having no abdominal pain at the time. Job ID: [id number]
[2018-12-01] MEDS: Neostigmine 0.5 MG in Syringe 0 ML SC SCH ×2 (04:28→12:46)
[2018-12-01] MEDS: Sodium Chloride 0.9% 1,000 ML IV SCH ×2 (05:52→14:34)
[2018-12-01] MEDS: Enoxaparin Sodium 40 MG/0.4 ML SYRINGE SC SCH (07:45)
[2018-12-01] MEDS: Piperacillin/Tazobactam 4.5 GM in Sodium Chloride 0.9% 100 ML IVPB SCH (07:45)
[2018-12-01 08:19] LABS: Anion Gap 12 mmol/L (10-20); BUN (Urea Nitrogen) Less than 4 mg/dL (7.0-18.7); Calc. Creatinine Clearance 138 mL/min (70-130); Calcium 8.8 mg/dL (7.8-10.44); Carbon Dioxide 22 mmol/L (22-29); Chloride 109 mmol/L (98-107); Estimated GFR-MDRD Greater than 90; Glucose 78 mg/dL (70-105); Magnesium 1.7 mg/dL (1.6-2.6); Phosphorus 2.6 mg/dL (2.3-4.7); Potassium 3.7 mmol/L (3.5-5.1); Sodium 139 mmol/L (136-145)
[2018-12-01] MEDS ORDERED: diphenhydrAMINE 25 MG CAP PO PRN (10:10)
[2018-12-01] MEDS: HYDROcodone/Acetaminophen 7.5/325 mg Tablet PO PRN (10:30)
[2018-12-01 11:53] VITALS: BP 141/80; TEMP 98.2
--- NOTE | 2018-12-01 12:20 | PRG ---
DATE OF SERVICE: 12/01/2018 SUBJECTIVE: Ms. Shena Miramontes is a very pleasant 42-year-old female, status post laparoscopic cholecystectomy and postop ileus. She started passing gas yesterday. She has active bowel sounds. She had no nausea or vomiting. She had one stool yesterday but no more stools since then; however, she is passing flatus. She complains of headaches. She says when she has menstrual cycle, she has severe headache, otherwise she has no GI complaints. PHYSICAL EXAMINATION: GENERAL: Appears comfortable, in no acute distress. VITAL SIGNS: Afebrile, pulse is 60, blood pressure 152/97. CARDIOVASCULAR: First and second heart sounds are normal. LUNGS: Clear to auscultation. ABDOMEN: Soft and nondistended. Abdomen is nontender. Does have active bowel sounds. IMPRESSION: 1. Status post laparoscopic cholecystectomy. 2. Ileus is resolving. RECOMMENDATION: Advance diet to regular diet and see how she does. If she had no abdominal pain, nausea, vomiting, from GI standpoint, she can probably be discharged. Job ID: [id number]
[2018-12-01] MEDS ORDERED: Amoxicillin/Potassium Clav 875 MG TAB PO SCH (21:00)
[2018-12-01] MEDS ORDERED: Hydrocortisone 1% Cream 30 GM TUBE TOP SCH (21:00)
--- NOTE | 2018-12-02 01:40 | DIS ---
DATE OF ADMISSION: 11/26/2018 DATE OF DISCHARGE: 12/01/2018 CONSULTS: 1. General Surgery, Dr. Long. 2. GI. 3. Pulmonary. PROCEDURES: 1. On 11/26/2018, abdominal/pelvis CT, contracted gallbladder with gallstones. Complex fluid in the abdomen and pelvis, correlate for enterocolitis. 2. On 11/27/2018, nuclear medicine scan without ejection fraction, impression, nonvisualization of gallbladder suggesting cystic duct obstruction. 3. On 11/28/2018, laparoscopic cholecystectomy by Dr. Long for acute cholecystitis. PRIMARY DIAGNOSES: Acute cholecystitis and possible colitis. SECONDARY DIAGNOSES: Sepsis, dehydration, hyponatremia, ileus. DISCHARGE MEDICATIONS: 1. Augmentin 875 mg p.o. b.i.d. x5 days. 2. Hydrocodone/acetaminophen 7.5/325 tablet one p.o. q.6 hours as needed for pain, #15. 3. Zofran ODT 4 mg q.6 hours as needed. 4. Hydrocortisone cream 1% to the affected areas of abdomen. HISTORY OF PRESENT ILLNESS: This is a 42-year-old female with past medical history of seizures, gallstone, and hypertension, who presented to the hospital with severe episode of nausea, vomiting that started on November 25 with associated diarrhea. The patient was admitted for acute cholelithiasis and was placed on broad-spectrum antibiotics as she was also thought to have enterocolitis. The patient was taken for a laparoscopic cholecystectomy on 11/28/2018. The patient did have complications of not passing gas and developed a postoperative ileus. The patient was encouraged to ambulate frequently. The patient was started on neostigmine subcutaneously and improved 4 hours after the 1st dose. The patient began to have bowel movements and passing gas. The patient was pain free and able to ambulate without any difficulties. Pain was well controlled with [place]. The patient was switched from Zosyn IV to Augmentin on the day of discharge. The patient will complete Augmentin for five days. On the day of discharge, the patient was examined by Dr. Bueno. The patient had no complaints and her vital signs were stable on the day of discharge. Her exam was unremarkable including cardiopulmonary and GI exam. The patient was deemed stable for discharge home. The patient was instructed to not lift anything more than 20 pounds. DISPOSITION: Stable. DISCHARGE INSTRUCTIONS: 1. Location: Home. 2. Diet: Regular diet. 3. Activity: As tolerated. Do not lift more than 20 pounds. 4. Followup: Follow up with Dr. Long or Dr. Elaine in one week. 5. Follow up with Dr. Morgan in 7 days. 6[address] Follow up Dr. Conte in 14 days. Job ID: [id number]
--- NOTE | 2018-12-02 11:43 | DIS ---
DATE OF ADMISSION: 11/26/2018 DATE OF DISCHARGE: 12/01/2018 ADMITTING DIAGNOSES: Abdominal pain, nausea, vomiting, acute cholecystitis and sepsis. DISCHARGE DIAGNOSES: Cholecystitis status post laparoscopic cholecystectomy, colitis, resolving, sepsis, resolved. HOSPITAL COURSE: This is a 42-year-old female who is admitted to the hospital with nausea, vomiting, as well as abdominal pain, admitted to internal medicine team also followed very closely by General Surgery as well as Gastroenterology. The patient was admitted to the [facility]. Given her significant sepsis, was started on IV antibiotics. The patient was monitored for 48 hours on IV antibiotics. The patient then had a surgical procedure done to remove her gallbladder. The patient was started on clear liquid diet and tolerated this well. The patient at point in time of discharge, denies any nausea, vomiting, diarrhea, constipation, chest pain, fevers, or shortness of breath, was stable, was given antibiotics to be taken for seven days at point in time of discharge, was tolerating a diet as well. The patient at point in time of discharge was cleared by internal medicine as well as surgery teams and had bowel movement and passed gas. Case and plan discussed with the patient and family at length. They understand and agree with this plan. Job ID: [id number]
--- NOTE | 2018-12-03 08:32 | PQF ---
Shena MiramontesKINGS [id number] SURG [id number] CLINICAL DOCUMENTATION CLARIFICATION FORM: POST DISCHARGE DATE: 12/03/2018 ATTN: Dr. Lang Please exercise your independent, professional judgment in responding to the clarification form. Clinical indicators are provided on the bottom of this form for your review Please check appropriate box(s): [ x ] Postoperative ileus is a postoperative complication related to current surgery [ ] Postoperative ileus is not a postoperative complication related to current surgery [ ] Other diagnosis (please specify) [ ] Unable to determine In addition, please specify: Present on Admission (POA): [ x ] Yes [ ] No [ ] Unable to determine CLINICAL INDICATORS - SIGNS / SYMPTOMS / LABS 12/01 PN (Ragupathi): Ileus is resolving. : 11/30 PN (Ohaju): Profound abdominal bloating associated with worsening abdominal pain. Not passing any flatus or having bowel movement since surgery. Acute postoperative adynamic ileus. 11/30 PN (Ragupathi): She has developed postop ileus. She does have abdominal pain, nausea, not able to pass gas yesterday. She had a small liquid stool today and she has no more nausea. RISK FACTORS Laparoscopic cholecystectomy 11/28/2018. TREATMENT: PN 11/30 (Ohaju): Will start neostigmine subcutaneously and monitor the patient for resolution of the ileus. Clear liquid diet. (This form is maintained as a part of the permanent medical record) 2014 [employer] All Rights Reserved [email or web address] [phone] MOHAN
--- NOTE | 2018-12-07 16:32 | EKG ---
Test Reason : Blood Pressure : / mmHG Vent. Rate : 074 BPM Atrial Rate : 074 BPM P-R Int : 138 ms QRS Dur : 076 ms QT Int : 374 ms P-R-T Axes : 036 055 023 degrees QTc Int : 415 ms Normal sinus rhythm Possible Left atrial enlargement Septal infarct , age undetermined Abnormal ECG Confirmed by MARGE CHERY DO ([id number]), copy editor DELMI FERRARO ([id number]) on 12/07/2018 4:32:44 PM Referred By: Confirmed By:MARGE CHERY DO
== END 2018-12-01 15:50 | disposition home or self-care (01) | DRG 854 ==
LOC: ERS 21:05 → ERHOLD 23:55 → IMCU/EMU 11-27 04:22 → SURG B 11-28 22:33
PROVIDERS: ADMIT Hospitalist; ATTEND Hospitalist
PROC: 0FT44ZZ Resection of Gallbladder, Percutaneous Endoscopic Approach (ICD-10-PCS; principal; 2018-11-28)
DX: A41.9 Sepsis, unspecified organism (principal); N17.9 Acute kidney failure, unspecified; E87.1 Hypo-osmolality and hyponatremia; E87.2 Acidosis; K80.00 Calculus of gallbladder with acute cholecystitis without obstruction; K91.89 Other postprocedural complications and disorders of digestive system; K56.7 Ileus, unspecified; R65.20 Severe sepsis without septic shock; E86.0 Dehydration; I10 Essential (primary) hypertension; I95.9 Hypotension, unspecified; E87.6 Hypokalemia; Z79.899 Other long term (current) drug therapy; Y83.6 Removal of other organ (partial) (total) as the cause of abnormal reaction of the patient, or of later complication, without mention of misadventure at the time of the procedure; Y92.239 Unspecified place in hospital as the place of occurrence of the external cause
CPT/HCPCS: 36415; 36416; 74022; 74177; 78226; 80048; 80053; 80307; 82550; 83605; 83690; 83735; 84100; 85007; 85025; 85027; 87040; 87045; 87046; 87070; 87205; 87324; 87449; 87899; 88304; 93005; 96361; 96365; 96375; 96376; A9503; J1100; J1200; J1650; J1885; J2250; J2270; J2405; J2543; J2704; J2710; J3010; J3475; J3480; J7050; Q0163; Q9961; Q9966; S0028